=== PATIENT | male | born 1950 | race American Indian/Alaskan Native ===

== ENCOUNTER 2021-09-28 01:49 | Emergency (ER) | payer OTHER ==
--- NOTE | 2021-09-28 03:23 | Emergency Department Report ---
ED Altered Mental Status HPI - General Chief Complaint: Syncope Stated Complaint: AMS Time Seen by Provider: 09/28/21 03:01 Source: EMS Mode of arrival: Stretcher Limitations: Altered Mental Status - History of Present Illness Initial Comments: 71-year-old male with an LVAD placed presents to the hospital with alteration mental status and fall. Patient is drowsy but arousable with slightly slowed speech. states his speech has been slow since waking up this morning and he has been sleeping all day. Patient fell into the bathtub while urinating. A shower chair broke his fall. Patient does not think he passed out he does not endorse any head or neck pain. He also denies chest pain or shortness of breath. expresses concern because his mental status has not improved throughout the day. He recently started Mucinex p.o. every 12 hours for ongoing cough. Patient has had 3 doses since starting the medication yesterday. Patient takes Coumadin chronically. patient is seen at [facility]. - Related Data Allergies Allergy/AdvReac Type Severity Reaction Status Date / Time iodine Allergy Severe Anaphylaxis Verified 09/28/21 01:54 ED Review of Systems ROS: Stated complaint: AMS Other details as noted in HPI Comment: All other systems reviewed and negative ED Past Medical Hx - Surgical History Past Surgical History?: No ED Physical Exam - General Limitations: Altered Mental Status - Other Other exam information: General: No acute distress Head: Atraumatic Eyes: normal appearance ENT: Moist mucous membranes Neck: Normal appearance, no midline tenderness Chest: Clear to auscultation bilaterally, LVAD device to anterior chest wall CV: Regular rate and rhythm Abdomen: Soft, normal bowel sounds, nontender, nondistended, no rebound or guarding Back: Normal inspection Extremity: Normal inspection, full range of motion Neuro: Drowsy but easily arousable, oriented times, no facial asymmetry, speech clear, no gross motor sensory deficit Psych: Appropriate behavior Skin: No rash - Assessment Assessment Interval: Baseline - Level of Consciousness 1a. Level of Consciousness: arousable/minor stimuli - LOC Questions 1b. LOC Questions: answers both correctly - LOC Command 1c. LOC Commands: performs tasks correctly - Best Gaze 2. Best Gaze: normal - Visual 3. Visual: no visual loss - Facial Palsy 4. Facial Palsy: normal symmetrical movement - Motor Arm 5a. Motor Arm Left: no drift 5b. Motor Arm Right: no drift - Motor Leg 6a. Motor Leg Left: no drift 6b. Motor Leg Right: no drift - Limb Ataxia 7. Limb Ataxia: absent - Sensory 8. Sensory: normal - Best Language 9. Best Language: no aphasia - Dysarthria 10. Dysarthria: normal - Extinction and Inattention 11. 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 Brendon Funez at [facility] - Lab Data Result diagrams: 09/28/21 03:18 09/28/21 03:18 Lab Results 09/28/21 09/28/21 09/28/21 Range/Units 03:18 03:18 03:18 WBC 4.4 L (4.5-11.0) K/mm3 RBC 4.46 (3.65-5.03) M/mm3 Hgb 12.1 (11.8-15.2) gm/dl Hct 39.0 (35.5-45.6) % MCV 87 (84-94) fl MCH 27 L (28-32) pg MCHC 31 L (32-34) % RDW 17.0 H (13.2-15.2) % Plt Count 205 (140-440) K/mm3 Lymph % (Auto) 16.1 (13.4-35.0) % Ada % (Auto) 11.0 H (0.0-7.3) % Eos % (Auto) 4.7 H (0.0-4.3) % Baso % (Auto) 1.8 (0.0-1.8) % Lymph # (Auto) 0.7 L (1.2-5.4) K/mm3 Ada # (Auto) 0.5 (0.0-0.8) K/mm3 Eos # (Auto) 0.2 (0.0-0.4) K/mm3 Baso # (Auto) 0.1 (0.0-0.1) K/mm3 Seg Neutrophils % 66.4 (40.0-70.0) % Seg Neutrophils # 2.9 (1.8-7.7) K/mm3 PT 28.0 H (12.2-14.9) Sec. INR 2.38 H (0.87-1.13) APTT 39.6 H (24.2-36.6) Sec. Thrombin Time 17.2 (15.1-19.6) Sec. Sodium (137-145) mmol/L Potassium (3.6-5.0) mmol/L Chloride (98-107) mmol/L Carbon Dioxide (22-30) mmol/L Anion Gap mmol/L BUN (9-20) mg/dL Creatinine (0.8-1.3) mg/dL Estimated GFR ml/min BUN/Creatinine Ratio % Glucose (75-100) mg/dL Calcium (8.4-10.2) mg/dL Total Bilirubin (0.1-1.2) mg/dL AST (5-40) units/L ALT (7-56) units/L Alkaline Phosphatase (35-129) units/L Ammonia (25-60) umol/L Total Creatine Kinase 143 (55-170) units/L CK-MB (CK-2) 3.2 (0.0-4.0) ng/mL CK-MB (CK-2) Rel Index 2.2 (0-4) Troponin T 0.011 (0.00-0.029) ng/mL Total Protein (6.3-8.2) g/dL Albumin (3.9-5) g/dL Albumin/Globulin Ratio % 09/28/21 09/28/21 Range/Units 03:18 03:18 WBC (4.5-11.0) K/mm3 RBC (3.65-5.03) M/mm3 Hgb (11.8-15.2) gm/dl Hct (35.5-45.6) % MCV (84-94) fl MCH (28-32) pg MCHC (32-34) % RDW (13.2-15.2) % Plt Count (140-440) K/mm3 Lymph % (Auto) (13.4-35.0) % Ada % (Auto) (0.0-7.3) % Eos % (Auto) (0.0-4.3) % Baso % (Auto) (0.0-1.8) % Lymph # (Auto) (1.2-5.4) K/mm3 Ada # (Auto) (0.0-0.8) K/mm3 Eos # (Auto) (0.0-0.4) K/mm3 Baso # (Auto) (0.0-0.1) K/mm3 Seg Neutrophils % (40.0-70.0) % Seg Neutrophils # (1.8-7.7) K/mm3 PT (12.2-14.9) Sec. INR (0.87-1.13) APTT (24.2-36.6) Sec. Thrombin Time (15.1-19.6) Sec. Sodium 139 (137-145) mmol/L Potassium 3.8 (3.6-5.0) mmol/L Chloride 100.4 (98-107) mmol/L Carbon Dioxide 27 (22-30) mmol/L Anion Gap 15 mmol/L BUN 19 (9-20) mg/dL Creatinine 1.5 H (0.8-1.3) mg/dL Estimated GFR 56 ml/min BUN/Creatinine Ratio 13 % Glucose 110 H (75-100) mg/dL Calcium 9.1 (8.4-10.2) mg/dL Total Bilirubin 1.10 (0.1-1.2) mg/dL AST 41 H (5-40) units/L ALT 28 (7-56) units/L Alkaline Phosphatase 175 H (35-129) units/L Ammonia 44.0 (25-60) umol/L Total Creatine Kinase (55-170) units/L CK-MB (CK-2) (0.0-4.0) ng/mL CK-MB (CK-2) Rel Index (0-4) Troponin T (0.00-0.029) ng/mL Total Protein 7.0 (6.3-8.2) g/dL Albumin 4.1 (3.9-5) g/dL Albumin/Globulin Ratio 1.4 % - EKG Data -: EKG Interpreted by Me (Ventricular paced rhythm, artifact secondary to LVAD) - Radiology Data Radiology results: report reviewed CT HEAD WITHOUT CONTRAST INDICATION / CLINICAL INFORMATION: REPEAT!!! possible subdural. TECHNIQUE: All CT scans at this location are performed using CT dose reduction for ALARA by means of automated exposure control. COMPARISON: Same-day CT examination. FINDINGS: BRAIN PARENCHYMA/INTRACRANIAL STRUCTURES: Previously suspected small subdural hematoma along the left cerebral convexity of the frontal lobe is no longer identified, consistent with artifact. No acute intracranial hemorrhage. Chronic small vessel scanning changes again seen. 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 There is no significant mass effect or midline shift. ORBITS: Normal as visualized. SKELETAL SYSTEM/SOFT TISSUES: Normal bones and soft tissues. PARANASAL SINUSES/MASTOID AIR CELLS: No significant abnormality. ADDITIONAL FINDINGS: None. IMPRESSION: Previously suspected small subdural hematoma along left frontal lobe is not seen, consistent with artifact. No acute intracranial abnormality. XR chest 1V ap INDICATION / CLINICAL INFORMATION: near syncope. COMPARISON: None available. FINDINGS: SUPPORT DEVICES: There is a left-sided cardiac conduction device and LVAD. Additional external cardiac support devices are present. HEART /PULMONARY VASCULATURE: The cardiac silhouette is enlarged with pulmonary vasculature congestion. LUNGS / PLEURA: Diffuse pulmonary airspace opacities. No sizable pleural effusion is identified. No pneumothorax. ADDITIONAL FINDINGS: No significant additional findings. IMPRESSION: Diffuse pulmonary airspace opacities, likely reflects pulmonary edema in the setting of CHF. Recommend correlation to exclude pneumonia. - Medical Decision Making 71-year-old male presents to the hospital with mild lethargy and slow speech throughout the day. After my evaluation stroke code activated. Patient was evaluated by neurologist received stat CT head after my evaluation. Patient does not have any focal neurologic deficit and we suspect that alteration in mental status is due to encephalopathy. Patient Recently started a new medication/Mucinex. Patient did have a fall and chronically takes Coumadin. No acute injury identified on CT head. Suspect acute encephalopathy cause unclear. ED labs unremarkable. UA pending. Plan to admit patient to the hospital for further monitoring and work-up due to mild alteration in mental status. Patient has been accepted for transfer by Dr. Brendon Funez to [facility] Critical Care Time: Yes Critical care attestation.: If time is entered above; I have spent that time in minutes in the direct care of this critically ill patient, excluding procedure time. ED Disposition Clinical Impression: Acute encephalopathy, LVAD (left ventricular assist device) present, Fall, Anticoagulated on Coumadin, Renal insufficiency Disposition: 02 SHORT TERM HOSPITAL Is pt being admited?: No Condition: Stable Time of Disposition: 06:06
[2021-09-28 03:40] LABS: Basophils # (Auto) 0.1 K/mm3 (0.0-0.1); Basophils % (Auto) 1.8 % (0.0-1.8); Eosinophils # (Auto) 0.2 K/mm3 (0.0-0.4); Eosinophils % (Auto) 4.7 % (0.0-4.3); Hemoglobin 12.1 gm/dl (11.8-15.2); Lymphocytes # (Auto) 0.7 K/mm3 (1.2-5.4); Lymphocytes % (Auto) 16.1 % (13.4-35.0); Mean Corpuscular HGB Conc 31 % (32-34); Mean Corpuscular Volume 87 fl (84-94); Monocytes # (Auto) 0.5 K/mm3 (0.0-0.8); Platelet Count 205 K/mm3 (140-440); Red Blood Count 4.46 M/mm3 (3.65-5.03)
[2021-09-28 03:54] LABS: INR 2.38 (0.87-1.13)
[2021-09-28 03:55] LABS: Partial Thromboplastin Time 39.6 Sec. (24.2-36.6); Thrombin Time 17.2 Sec. (15.1-19.6)
[2021-09-28 04:04] LABS: Creatine Kinase MB 3.2 ng/mL (0.0-4.0)
[2021-09-28 04:06] LABS: Albumin 4.1 g/dL (3.9-5); Calcium 9.1 mg/dL (8.4-10.2)
--- NOTE | 2021-09-28 04:11 | Cat Scan Report ---
CT HEAD WITHOUT CONTRAST INDICATION / CLINICAL INFORMATION: CODE STROKE PROTOCOL!!! Stroke-Like symptoms. TECHNIQUE: All CT scans at this location are performed using CT dose reduction for ALARA by means of automated exposure control. COMPARISON: None available. FINDINGS: BRAIN PARENCHYMA/INTRACRANIAL STRUCTURES: Small area of hyperattenuation along the left frontal lobe (series 2 image 13 and 14 and series 602 image 33 through 38). This is concerning for small subdural hematoma. No evidence of recent infarct. Encephalomalacia related to chronic right UNSTACKER distribution i nfarct in the right occipital lobe. No evidence of additional acute intracranial hemorrhage. There is no significant mass effect or midline shift. ORBITS: Normal as visualized. SKELETAL SYSTEM/SOFT TISSUES: Normal bones and soft tissues. PARANASAL SINUSES/MASTOID AIR CELLS: No significant abnormality. ADDITIONAL FINDINGS: None. IMPRESSION: 1. Findings suspicious for small subdural hematoma along the left frontal lobe. Recommend short-term CT follow-up. 2. Otherwise, no acute intracranial abnormality. No evidence of recent infarct. Findings were discussed with Dr. Zuniga by phone on 09/28/2021 at 3:07 AM. Signer Name: Doni Ziegler MD Signed: 09/28/2021 4:07 AM Workstation Name: [id number]
--- NOTE | 2021-09-28 04:15 | Consultation ---
Medications and Allergies Allergies Allergy/AdvReac Type Severity Reaction Status Date / Time iodine Allergy Severe Anaphylaxis Verified 09/28/21 01:54 Physical Examination - Vital Signs Vital Signs: Vital Signs Temp Pulse Resp Pulse Ox 98.9 F 89 18 97 09/28/21 02:19 09/28/21 02:19 09/28/21 02:19 09/28/21 02:19 Results - Laboratory Findings CBC and BMP: 09/28/21 03:18 09/28/21 03:18 Abnormal Lab Findings: Abnormal Labs 09/28/21 09/28/21 09/28/21 03:18 03:18 03:18 WBC 4.4 L MCH 27 L MCHC 31 L RDW 17.0 H [place] % (Auto) 11.0 H Eos % (Auto) 4.7 H Lymph # (Auto) 0.7 L PT 28.0 H INR 2.38 H APTT 39.6 H Creatinine 1.5 H Glucose 110 H AST 41 H Alkaline Phosphatase 175 H Assessment and Plan [facility] Consult Note # Demographics Consult Type: Acute Stroke Level 2 (4.5-24 hrs) Patient Location: Emergency Room First Name: Beau Last Name: Savanna Date of : 1950 Age: 71 Gender: Male Facility: [facility] Time of Initial Page (Eastern Time): 09/28/2021, 03:14 Time of Return Call (Eastern Time): 09/28/2021, 03:15 # HPI History: 71M with LVAD, fell in bathroom. Slow all day per today. Mucinex started recently. # PMH-FH-SH Past Medical History: Lvad Medications: warfarin # Assessment Impression: Altered Mental Status No focal deficit, current examination is most consistent with encephalopathy. # Plan Thrombolytic/Intervention: NOT IV Thrombolysis or IA Intervention candidate Thrombolytic Exclusion (< 3 hour window): time of onset unclear Thrombolytic Exclusion: > 4.5 hours Intraarterial Exclusion: clinically not consistent with stroke Labs: CBC comprehensive metabolic panel ua Medication: anticoagulation with coumadin (Warfarin) Other: telemetry monitoring I have discussed my recommendations with the referring provider Disposition: admit # Logistics Telemedicine: Interactive 2 way audio and visual telecommunication technology was utilized during this visit
--- NOTE | 2021-09-28 04:37 | Cat Scan Report ---
CT HEAD WITHOUT CONTRAST INDICATION / CLINICAL INFORMATION: REPEAT!!! possible subdural. TECHNIQUE: All CT scans at this location are performed using CT dose reduction for ALARA by means of automated exposure control. COMPARISON: Same-day CT examination. FINDINGS: BRAIN PARENCHYMA/INTRACRANIAL STRUCTURES: Previously suspected small subdural hematoma along the left cerebral convexity of the frontal lobe is no longer identified, consistent with artifact. No acute i ntracranial hemorrhage. Chronic small vessel scanning changes again seen. Encephalomalacia related to chronic right EMBROIDERER HAND distribution infarct in the right occipital lobe. There is no significant mass eff ect or midline shift. ORBITS: Normal as visualized. SKELETAL SYSTEM/SOFT TISSUES: Normal bones and soft tissues. PARANASAL SINUSES/MASTOID AIR CELLS: No significant abnormality. ADDITIONAL FINDINGS: None. IMPRESSION: Previously suspected small subdural hematoma along left frontal lobe is not seen, consist ent with artifact. No acute intracranial abnormality. Signer Name: Doni Ziegler MD Signed: 09/28/2021 4:32 AM Workstation Name: [id number]
--- NOTE | 2021-09-28 05:56 | XRay Report ---
XR chest 1V ap INDICATION / CLINICAL INFORMATION: near syncope. COMPARISON: None available. FINDINGS: SUPPORT DEVICES: There is a left-sided cardiac conduction device and LVAD. Additional external cardia c support devices are present. HEART /PULMONARY VASCULATURE: The cardiac silhouette is enlarged with pulmonary vasculature congestio n. LUNGS / PLEURA: Diffuse pulmonary airspace opacities. No sizable pleural effusion is identified. No p neumothorax. ADDITIONAL FINDINGS: No significant additional findings. IMPRESSION: Diffuse pulmonary airspace opacities, likely reflects pulmonary edema in the setting of CHF. Recommbam d correlation to exclude pneumonia. Signer Name: Doni Ziegler MD Signed: 09/28/2021 5:51 AM Workstation Name: [id number]
[2021-09-28 08:16] VITALS: BP 118/68
[2021-09-28 09:25] LABS: Bilirubin,Urine NEG (Negative); Blood,Urine NEG (Negative); Color,Urine Yellow (Yellow); Hyaline Casts,Urine 2 /LPF; Protein,Urine <15 mg/dL mg/dL (Negative); Urobilinogen,Urine < 2.0 mg/dL (<2.0)
--- NOTE | 2021-09-28 10:38 | Electrocardiograph Report ---
[facility] Test Date: 2021-09-28 Test Time: 05:34:00 Pat Name: DANGELO GONZALEZ Department: Room: Gender: M [place] Therapist: NURSE : 1950 Requested By: ANIKA FRAZIER Order Number: [id number] Reading MD: Jameel Handley Measurements Intervals [place] Rate: 94 P: 0 HI: 135 QRS: -89 QRSD: 128 T: 99 QT: 476 QTc: 593 Interpretive Statements Ventricular-paced complexes No previous ECG available for comparison Electronically Signed On 09-28-2021 10:38:01 EST by Jameel Handley
== END 2021-09-28 07:30 | disposition short-term general hospital (02) ==
LOC: ED 01:49
DX: G93.40 Encephalopathy, unspecified (principal); N28.9 Disorder of kidney and ureter, unspecified; Z79.01 Long term (current) use of anticoagulants; Z95.811 Presence of heart assist device; Z88.6 Allergy status to analgesic agent; Z79.899 Other long term (current) drug therapy
CPT/HCPCS: 36415; 70450; 71045; 80053; 81001; 82140; 82550; 82553; 82962; 84484; 85025; 85610; 85670; 85730; 93005; 99285